=== PATIENT | female | born 1945 | race Hispanic/Latino ===

== ENCOUNTER → 2023-07-19 | Outpatient (CLI) | payer OTHER | END | disposition home or self-care (01) | LOC: RAH 08:08 | PROVIDERS: ATTEND Family Medicine | DX: Z12.31 Encounter for screening mammogram for malignant neoplasm of breast (principal) | CPT/HCPCS: 77067 ==

== ENCOUNTER → 2024-10-07 | Outpatient (CLI) | payer OTHER ==
--- NOTE | 2024-10-08 10:07 | HMCIMG ---
MAMMO SCREENING BILATERAL HISTORY: Screening mammogram. COMPARISON: 07/19/2023 TECHNIQUE: Bilateral screening mammogram with CAD was performed with craniocaudal and mediolateral oblique projections. FINDINGS: The breasts are heterogeneous dense, which may obscure small masses. There is nodular density at the inferior aspect of the left breast superficially only seen on the mediolateral oblique view. Ultrasound is recommended for complete evaluation. This may be related to a superficial skin lesion. There is no other evidence of a dominant mass, or suspicious microcalcification. There is no evidence of nipple retraction or skin thickening. IMPRESSION: 1. There is nodular density at the inferior aspect of the left breast superficially only seen on the mediolateral oblique view. Ultrasound is recommended for complete evaluation. This may be related to a superficial skin lesion. Patient was entered into a reminder system with a target due date for their next mammogram. BI-RADS: CATEGORY 0: INCOMPLETE. NEED ADDITIONAL IMAGING EVALUATION Diagnostic mammogram is recommended. Recommend monthly self breast exam as well as annual clinical examination. A negative x-ray should not delay biopsy if a dominant or clinically suspicious mass is present, since 8-10% of cancers are not identified by mammography. Dense breasts particularly, may obscure an underlying neoplasm. Some of these may be detected clinically and therefore, clinical examination is an essential part of breast evaluation.
== END | disposition home or self-care (01) ==
LOC: RAH 14:28
PROVIDERS: ATTEND Family Medicine
DX: Z12.31 Encounter for screening mammogram for malignant neoplasm of breast (principal); R92.333 Mammographic heterogeneous density, bilateral breasts; N63.20 Unspecified lump in the left breast, unspecified quadrant
CPT/HCPCS: 77067

== ENCOUNTER → 2024-10-23 | Outpatient (CLI) | payer OTHER ==
--- NOTE | 2024-10-23 11:26 | HMCIMG ---
US BREAST COMPLETE UNILATERAL REASON: UNSP LEFT BREST LUMP. COMPARISON: Mammogram from October 07, 2024 TECHNIQUE: Left breast ultrasound study was performed. FINDINGS: There is complex structure at superficial aspect of the 7:00 of the left breast measuring 8 x 5 x 7 mm with differential diagnosis include sebaceous cyst. Six-month follow-up study is recommended. No other cystic or hypoechoic mass is seen. IMPRESSION: There is complex structure at superficial aspect of the 7:00 of the left breast measuring 8 x 5 x 7 mm with differential diagnosis include sebaceous cyst. Six-month follow-up study is recommended. No other cystic or hypoechoic mass is seen. CATEGORY 3: PROBABLE BENIGN-SHORT INTERVAL FOLLOWUP SUGGESTED Recommend monthly self breast exam as well as annual clinical examination.
== END | disposition home or self-care (01) ==
LOC: RAH 08:46
PROVIDERS: ATTEND Family Medicine
DX: N60.02 Solitary cyst of left breast (principal); N63.20 Unspecified lump in the left breast, unspecified quadrant
CPT/HCPCS: 76641

== ENCOUNTER → 2025-10-26 | Outpatient (CLI) | payer OTHER | END | disposition home or self-care (01) | LOC: RAH 10-08 08:10 | PROVIDERS: ATTEND Family Medicine | DX: Z12.31 Encounter for screening mammogram for malignant neoplasm of breast (principal) | CPT/HCPCS: 77067 ==